=== PATIENT | male | born 1950 | race Caucasian/White ===

== ENCOUNTER 2021-05-29 00:27 | Observation (INO) | payer MEDICARE ==
[~2021-05-29] VITALS: Ht 188 cm; Wt 91.2 kg
[2021-05-29] VITALS (11 sets, daily range): BP systolic 100–136; BP diastolic 50–73
[2021-05-29 01:13] LABS: BASOPHILS # (AUTO) 0.1 X10'3 (0-0.2); BASOPHILS % (AUTO) 0.6 % (0-1); EOSINOPHILS # (AUTO) 0.3 X10'3 (0-0.9); EOSINOPHILS % (AUTO) 4.2 % (0-6); HEMATOCRIT 39.2 % (42.0-52.0); HEMOGLOBIN 13.5 g/dl (14.0-17.9); LYMPHOCYTES # (AUTO) 2.5 X10'3 (1.1-4.8); MEAN CORPUSCULAR HEMOGLOBIN 30.6 PG (27.0-31.0); MEAN CORPUSCULAR HGB CONC 34.5 g/dL (33.0-36.5); MEAN CORPUSCULAR VOLUME 88.9 FL (78-98); MEAN PLATELET VOLUME 7.4 FL (7.4-10.4); MONOCYTES # (AUTO) 0.7 X10'3 (0-0.9); MONOCYTES % (AUTO) 8.7 % (2-12); NEUTROPHILS # (AUTO) 4.3 X10'3 (1.8-7.7); NEUTROPHILS % (AUTO) 54.5 % (42-75); PLATELET COUNT 215 X10'3 (140-440); RED BLOOD COUNT 4.41 X10'6 (4.70-6.10); RED CELL DISTRIBUTION WIDTH 13.5 % (11.5-14.5); WHITE BLOOD COUNT 7.9 X10'3 (4.5-11.0)
[2021-05-29 01:26] LABS: ALANINE AMINOTRANSFERASE 33 U/L (12-78); ALBUMIN 3.6 G/DL (3.4-5.0); ALKALINE PHOSPHATASE 80 IU/L (46-116); ANION GAP 7 (8-16); ASPARTATE AMINO TRANSFERASE 21 U/L (10-37); BILIRUBIN,TOTAL 0.5 MG/DL (0.1-1.0); BLOOD UREA NITROGEN 23 MG/DL (7-18); CALCIUM 8.8 MG/DL (8.5-10.1); CHLORIDE 107 MMOL/L (99-107); CREATININE 0.82 MG/DL (0.60-1.10); GLUCOSE 97 MG/DL (70-104); POTASSIUM 3.7 MMOL/L (3.5-5.1); SODIUM 141 MMOL/L (135-145); TOTAL CARBON DIOXIDE 26.6 MMOL/L (24-32); TOTAL PROTEIN 7.1 G/DL (6.4-8.2); eGFR > 90 ML/MIN
[2021-05-29 01:34] LABS: MAGNESIUM 1.9 MG/DL (1.5-2.4)
[2021-05-29] MEDS ORDERED: FAMO-128 PO (03:59)
[2021-05-29] MEDS ORDERED: FLUT1DIS14 INH (03:59)
[2021-05-29] MEDS ORDERED: LANS15TA5 PO (03:59)
[2021-05-29] MEDS ORDERED: OMEP20CA16 PO (03:59)
[2021-05-29] MEDS ORDERED: ALLO300T8 PO (03:59)
[2021-05-29] MEDS ORDERED: FINA5TAB11 PO (03:59)
[2021-05-29] MEDS ORDERED: LEVO100T PO (03:59)
[2021-05-29] MEDS ORDERED: FLO0.4C PO (03:59)
[2021-05-29] MEDS ORDERED: aspirin 325mg tablet PO ONE (04:40)
[2021-05-29] MEDS ORDERED: ondansetron/PF 4mg/2ml inj IV PRN (05:10)
[2021-05-29] MEDS ORDERED: morphine 2 MG/ML inj. syringe IV PRN (05:10)
[2021-05-29] MEDS ORDERED: regadenoson 0.4mg/5ml syringe IV PRN (05:10)
[2021-05-29] MEDS ORDERED: HYDROcodone/acetaminophen 5mg/325mg tablet PO PRN (05:10)
[2021-05-29] MEDS ORDERED: magnesium Cl slow-release 64mg tablet PO PRN (05:10)
[2021-05-29] MEDS ORDERED: normal saline 1000ml 1,000 ML IV SCH (05:10)
[2021-05-29] MEDS ORDERED: aminophylline 250mg/10ml inj. IV PRN (05:10)
[2021-05-29] MEDS ORDERED: magnesium 2GM in 50ml NS 50 ML IV PRN (05:10)
[2021-05-29] MEDS ORDERED: metoprolol tartrate 1mg/ml inj IV PRN (05:10)
[2021-05-29] MEDS ORDERED: acetaminophen 325mg tablet PO PRN (05:10)
[2021-05-29] MEDS ORDERED: nitroGLYCERIN 0.4mg SUBLingual tab SL PRN (05:10)
[2021-05-29] MEDS ORDERED: PERFLUTREN PROTEIN-A MICROSPHR (Optison) 0.22 MG/ML 3ML VIAL IV ONE (05:10)
[2021-05-29] MEDS ORDERED: magnesium 4gm in 100ml NS 100 ML IV PRN (05:10)
[2021-05-29] MEDS ORDERED: potassium Cl 20 mEq SR tablet PO PRN ×2 (05:10)
[2021-05-29] MEDS ORDERED: potassium CL 10mEq/100ml bag 100 ML IV PRN (05:10)
[2021-05-29 08:00] LABS: POTASSIUM 3.7 MMOL/L (3.5-5.1)
[2021-05-29] MEDS: K and/or MAG REPLACEMENT MC SCH ×2 (08:00→20:00)
[2021-05-29] MEDS: enoxaparin 40mg/0.4ml syringe SUBCUT SCH (08:00)
[2021-05-29] MEDS ORDERED: LEVO150T8 PO (08:10)
[2021-05-29] MEDS: allopurinol 300 MG tablet PO SCH (08:40)
[2021-05-29] MEDS: finasteride 5mg tablet PO SCH (08:40)
[2021-05-29] MEDS: pantoprazole 40mg Tablet.DR PO SCH (08:41)
[2021-05-29] MEDS: levoTHYROXINE 75mcg tablet PO SCH (11:09)
--- NOTE | 2021-05-29 13:28 | NUR ---
Patient had 22 beats of ventricular tachycardia at 1317. Patient states he did not feel any symptoms and states he was getting up to use the bathroom at that time. Physician was paged
--- NOTE | 2021-05-29 13:28 | NUR ---
Page to Dr. Bran Message: [phone] Manjinder Jin- Had 22 beats of ventricular tachycardia at 1317. Terri [id number]
[2021-05-29] MEDS: albuterol 2.5 MG/3 ML nebule NEB SCH ×2 (14:00→20:00)
--- NOTE | 2021-05-29 15:01 | NUR ---
Page to Dr. Bran Message: [phone] Manjinder Abdi- Dr. Hernandez's office faxed his last visit in February. Terri [phone]
--- NOTE | 2021-05-29 16:22 | NUR ---
Page to Dr. Bran Message: [phone] Manjinder Abdi- Requests to talk to you. Terri [phone]
--- NOTE | 2021-05-29 18:27 | NUR ---
Problems reprioritized. Patient report given, questions answered & plan of care reviewed with Jazmin DELA CRUZ.
[2021-05-29] MEDS: budesonide 0.5mg/2ml UD nebule IH SCH (20:23)
[2021-05-29] MEDS ORDERED: tamsulosin 0.4mg capsule PO SCH (21:00)
[2021-05-30 02:00] VITALS: BP 109/60
[2021-05-30] MEDS: albuterol 2.5 MG/3 ML nebule NEB SCH ×2 (02:00→08:00)
[2021-05-30 06:00] VITALS: BP 100/48
[2021-05-30] MEDS: K and/or MAG REPLACEMENT MC SCH (08:00)
[2021-05-30] MEDS: pantoprazole 40mg Tablet.DR PO SCH (08:04)
[2021-05-30] MEDS: levoTHYROXINE 75mcg tablet PO SCH (08:04)
[2021-05-30 08:05] LABS: BASOPHILS % (AUTO) 0.5 % (0-1); EOSINOPHILS # (AUTO) 0.2 X10'3 (0-0.9); EOSINOPHILS % (AUTO) 3.6 % (0-6); HEMATOCRIT 38.3 % (42.0-52.0); HEMOGLOBIN 13.2 g/dl (14.0-17.9); LYMPHOCYTES # (AUTO) 1.8 X10'3 (1.1-4.8); LYMPHOCYTES % (AUTO) 29.4 % (21-51); MEAN CORPUSCULAR HEMOGLOBIN 30.9 PG (27.0-31.0); MEAN CORPUSCULAR HGB CONC 34.3 g/dL (33.0-36.5); MONOCYTES # (AUTO) 0.6 X10'3 (0-0.9); MONOCYTES % (AUTO) 10.4 % (2-12); NEUTROPHILS # (AUTO) 3.4 X10'3 (1.8-7.7); NEUTROPHILS % (AUTO) 56.1 % (42-75); PLATELET COUNT 199 X10'3 (140-440); RED BLOOD COUNT 4.26 X10'6 (4.70-6.10); RED CELL DISTRIBUTION WIDTH 13.8 % (11.5-14.5)
[2021-05-30] MEDS: finasteride 5mg tablet PO SCH (08:05)
[2021-05-30] MEDS: enoxaparin 40mg/0.4ml syringe SUBCUT SCH (08:05)
[2021-05-30] MEDS: allopurinol 300 MG tablet PO SCH (08:05)
[2021-05-30] MEDS: budesonide 0.5mg/2ml UD nebule IH SCH (08:07)
[2021-05-30 08:35] LABS: ANION GAP 6 (8-16); BLOOD UREA NITROGEN 16 MG/DL (7-18); BUN/CREATININE RATIO 20.8 (5.4-32.0); CALCIUM 8.6 MG/DL (8.5-10.1); CHLORIDE 107 MMOL/L (99-107); CREATININE 0.77 MG/DL (0.60-1.10); GLUCOSE 86 MG/DL (70-104); MAGNESIUM 2.1 MG/DL (1.5-2.4); PHOSPHORUS 2.8 MG/DL (2.3-4.5); SODIUM 142 MMOL/L (135-145); TOTAL CARBON DIOXIDE 28.6 MMOL/L (24-32); eGFR > 90 ML/MIN
[2021-05-30 11:00] VITALS: BP 119/66
--- NOTE | 2021-05-30 14:09 | NUR ---
Patient stable for discharge. PIV removed with catheter intact. Telemetry removed. Discharge instructions given and patient verbalized understanding. All possessions gathered and patient transferred safely to 's car.
== END 2021-05-30 14:14 | disposition home or self-care (01) ==
LOC: ER 00:28 → ED HOLD 05:11 → UNDOADMOB 05:11 → INTOOBSV 05:11 → ED HOLD 06:30 → PCU 3S 07:23
PROVIDERS: ADMIT Internal Medicine; ATTEND Family Medicine
DX: R07.89 Other chest pain (principal); Z20.822 Contact with and (suspected) exposure to COVID-19; I48.91 Unspecified atrial fibrillation; K21.9 Gastro-esophageal reflux disease without esophagitis; N40.0 Benign prostatic hyperplasia without lower urinary tract symptoms; I49.3 Ventricular premature depolarization; M10.9 Gout, unspecified; I47.2 Ventricular tachycardia; J45.909 Unspecified asthma, uncomplicated; E03.9 Hypothyroidism, unspecified; Z79.899 Other long term (current) drug therapy; Z79.82 Long term (current) use of aspirin; Z79.890 Hormone replacement therapy; Z96.651 Presence of right artificial knee joint
CPT/HCPCS: 36415; 71045; 78452; 80048; 80053; 83735; 83880; 84100; 84132; 84484; 85025; 87635; 93005; 93017; 93306; 94640; 94760; 96372; 99285; A9500; C9803; G0378; J1650

== ENCOUNTER 2022-08-01 10:01 | Emergency (ER) | payer MEDICARE ==
[~2022-08-01] VITALS: Ht 185.4 cm; Wt 85.0 kg
[~2022-08-01 10:01] MED LIST: ALLO300T8 PO; FAMO-128 PO; FINA5TAB11 PO; FLO0.4C PO; FLUT1DIS14 INH; LEVO150T8 PO; OMEP20CA16 PO
[2022-08-01 10:26] LABS: BASOPHILS # (AUTO) 0.1 X10'3 (0-0.2); BASOPHILS % (AUTO) 0.9 % (0-1); EOSINOPHILS # (AUTO) 0.2 X10'3 (0-0.9); EOSINOPHILS % (AUTO) 3.3 % (0-6); HEMATOCRIT 40.2 % (42.0-52.0); HEMOGLOBIN 13.8 g/dl (14.0-17.9); LYMPHOCYTES # (AUTO) 1.3 X10'3 (1.1-4.8); LYMPHOCYTES % (AUTO) 23.8 % (21-51); MEAN CORPUSCULAR HEMOGLOBIN 31.7 PG (27.0-31.0); MEAN CORPUSCULAR HGB CONC 34.4 g/dL (33.0-36.5); MEAN CORPUSCULAR VOLUME 92.1 FL (78-98); MEAN PLATELET VOLUME 7.6 FL (7.4-10.4); MONOCYTES # (AUTO) 0.4 X10'3 (0-0.9); MONOCYTES % (AUTO) 8.1 % (2-12); NEUTROPHILS # (AUTO) 3.5 X10'3 (1.8-7.7); NEUTROPHILS % (AUTO) 63.9 % (42-75); PLATELET COUNT 205 X10'3 (140-440); RED BLOOD COUNT 4.36 X10'6 (4.70-6.10); RED CELL DISTRIBUTION WIDTH 14.2 % (11.5-14.5); WHITE BLOOD COUNT 5.5 X10'3 (4.5-11.0)
--- NOTE | 2022-08-01 10:50 | NUR ---
AT BEDSIDE - PT RESTING COMFORTABLY - NO NEEDS AT THIS TIME - CALL LIGHT IN REACH
[2022-08-01 10:52] LABS: ALANINE AMINOTRANSFERASE 29 U/L (12-78); ALBUMIN 3.6 G/DL (3.4-5.0); ALBUMIN/GLOBULIN RATIO 1.1 (1.1-1.5); ALKALINE PHOSPHATASE 68 IU/L (46-116); ANION GAP 6 (8-16); ASPARTATE AMINO TRANSFERASE 24 U/L (10-37); BILIRUBIN,TOTAL 0.8 MG/DL (0.1-1.0); BLOOD UREA NITROGEN 15 MG/DL (7-18); BUN/CREATININE RATIO 15.5 (10.0-20.0); CALCIUM 9.1 MG/DL (8.5-10.1); CHLORIDE 104 MMOL/L (99-107); CREATININE 0.97 MG/DL (0.60-1.10); GLUCOSE 107 MG/DL (70-104); MAGNESIUM 2.3 MG/DL (1.5-2.4); SODIUM 139 MMOL/L (135-145); TOTAL CARBON DIOXIDE 29.1 MMOL/L (24-32); TOTAL PROTEIN 6.9 G/DL (6.4-8.2); eGFR 76 ML/MIN
[2022-08-01] MEDS ORDERED: normal saline 1000ml 1,000 ML IV ONE (12:00)
[2022-08-01 12:08] VITALS: BP 123/76
[2022-08-01 12:19] LABS: CLARITY,URINE CLEAR (Clear); COLOR,URINE YELLOW (Yellow); GLUCOSE, URINE NEGATIVE (Neg); KETONES,URINE NEGATIVE (Neg); LEUKOCYTE ESTERASE ,URINE NEGATIVE (Neg); NITRITES, URINE NEGATIVE (Neg); OCCULT BLOOD,URINE NEGATIVE (Neg); PROTEIN,URINE NEGATIVE (Neg); UROBILINOGEN,URINE 0.2 E.U/dL (0.2-1.0)
[2022-08-01 12:22] LABS: UA COLLECTION TYPE VOIDED
== END 2022-08-01 13:42 | disposition home or self-care (01) ==
LOC: ER 10:02
DX: R00.2 Palpitations (principal); R94.6 Abnormal results of thyroid function studies; R07.89 Other chest pain; R11.0 Nausea; J45.909 Unspecified asthma, uncomplicated; E03.9 Hypothyroidism, unspecified; M19.90 Unspecified osteoarthritis, unspecified site; Z88.0 Allergy status to penicillin; Z88.6 Allergy status to analgesic agent
CPT/HCPCS: 36415; 71045; 80053; 81003; 83735; 83880; 84439; 84443; 84484; 85025; 93005; 96360; 99285; J7030

== ENCOUNTER 2023-10-30 13:46 | Emergency (ER) | payer MEDICARE ==
[~2023-10-30] VITALS: Ht 185.4 cm; Wt 88.0 kg
[2023-10-30 14:37] LABS: BASOPHILS # (AUTO) 0.1 X10'3 (0-0.2); EOSINOPHILS # (AUTO) 0.3 X10'3 (0-0.9); EOSINOPHILS % (AUTO) 4.7 % (0-6); HEMATOCRIT 39.7 % (42.0-52.0); HEMOGLOBIN 13.3 g/dl (14.0-17.9); LYMPHOCYTES # (AUTO) 1.8 X10'3 (1.1-4.8); LYMPHOCYTES % (AUTO) 29.7 % (21-51); MEAN CORPUSCULAR HEMOGLOBIN 30.9 PG (27.0-31.0); MEAN CORPUSCULAR HGB CONC 33.4 g/dL (33.0-36.5); MEAN CORPUSCULAR VOLUME 92.6 FL (78-98); MEAN PLATELET VOLUME 7.2 FL (7.4-10.4); MONOCYTES # (AUTO) 0.6 X10'3 (0-0.9); MONOCYTES % (AUTO) 9.6 % (2-12); NEUTROPHILS # (AUTO) 3.4 X10'3 (1.8-7.7); PLATELET COUNT 211 X10'3 (140-440); RED BLOOD COUNT 4.29 X10'6 (4.70-6.10); WHITE BLOOD COUNT 6.2 X10'3 (4.5-11.0)
[2023-10-30 14:59] VITALS: TEMP 98
[2023-10-30 15:02] LABS: ALBUMIN 3.4 G/DL (3.4-5.0); ANION GAP 3 (8-16); BLOOD UREA NITROGEN 22 MG/DL (7-18); BUN/CREATININE RATIO 22.2 (10.0-20.0); CALCIUM 8.7 MG/DL (8.5-10.1); CHLORIDE 106 MMOL/L (99-107); CREATININE 0.99 MG/DL (0.60-1.10); GLUCOSE 112 MG/DL (70-104); POTASSIUM 4.2 MMOL/L (3.5-5.1); PRO BRAIN NATRIURETIC PEPTIDE 146 PG/ML (0-125); SODIUM 139 MMOL/L (135-145); TOTAL CARBON DIOXIDE 29.7 MMOL/L (24-32); eCRCL 74 ML/MIN; eGFR 74 ML/MIN
[2023-10-30 15:59] VITALS: BP 123/69; PULSE 54; RESP 16; O2SAT 99
== END 2023-10-30 16:02 | disposition home or self-care (01) ==
LOC: ER 13:46
DX: S00.12XA Contusion of left eyelid and periocular area, initial encounter (principal); R42 Dizziness and giddiness; I48.91 Unspecified atrial fibrillation; J45.909 Unspecified asthma, uncomplicated; E03.9 Hypothyroidism, unspecified; M19.90 Unspecified osteoarthritis, unspecified site; Z88.0 Allergy status to penicillin; Z88.6 Allergy status to analgesic agent; Z79.899 Other long term (current) drug therapy; Z79.2 Long term (current) use of antibiotics; X58.XXXA Exposure to other specified factors, initial encounter; Y93.89 Activity, other specified; Y92.89 Other specified places as the place of occurrence of the external cause; Y99.8 Other external cause status
CPT/HCPCS: 36415; 80048; 83880; 84484; 85025; 93005; 99284

== ENCOUNTER 2024-08-30 20:36 | Emergency (ER) | payer MEDICARE ==
[~2024-08-30] VITALS: Ht 185.4 cm; Wt 65.0 kg
[2024-08-30 20:38] VITALS: BP 126/69; PULSE 72; RESP 16; TEMP 98.6; O2SAT 97
--- NOTE | 2024-08-30 21:01 | Physician Documentation ---
History of Present Illness ~ Chief Complaint: Laceration Stated Complaint: L ARM LAC Time Seen by MD: 21:01 Primary Medical Doctor: MD Nain and MD Mary HPI This 74-year-old male with a unknown tetanus status presents to the emergency department reporting that he was doing some painting today when he scraped his left lateral arm on some wood, sustaining a laceration that is approximately 3 cm. He denies any other concerns, and reports that he is otherwise feeling well and at his baseline. Tetanus Within 5 Years: Yes Medication Reconciliation Allergies: Coded Allergies: Penicillins (Verified Allergy, Intermediate, HIVES, 08/30/24) aspirin (Verified Allergy, Intermediate, HIVES, 08/30/24) Scheduled Allopurinol (Allopurinol), 1 TAB PO DAILY, (Reported) Famotidine (Pepcid), 1 TAB PO Q12H, (Reported) Finasteride (Finasteride), 1 TAB PO DAILY, (Reported) Fluticasone/Salmeterol (Advair 100-50 Diskus), 1 PUFFS INH DAILY, (Reported) Levothyroxine Sodium (Levothyroxine Sodium), 1 TAB PO DAILY, (Reported) Omeprazole (Omeprazole), 1 CAP PO DAILY, (Reported) Tamsulosin Hcl (Flomax), 0.4 MG PO HS, (Reported) Past Medical History Past Medical History: Atrial Fibrillation, Asthma, BPH, Hypothyroidism, Arthritis Past Surgical History: other Other Past Surgical History: Cardiac ablation Drug Use: none Lives with: Spouse Lives In: Home Occupation: retired Review of Systems ROS As stated above in the HPI, otherwise all systems are reviewed and negative. Physical Exam Vital Signs: Temperature: 98.6, Source: Oral, Heart Rate: 72, Respiratory Rate: 16, BP: 126/69, Pulse Oximetry: 97, Weight: 65.050 Oxygen Flow Rate: 0 Physical Exam General: Alert, no apparent distress. HEENT: PERRL, EOMI, no injection, moist mucous membranes. Neck: Full range of motion. Respiratory: Lungs clear, no respiratory distress. Chest: No accessory muscle use. Cardiovascular: Regular rate and rhythm, no murmurs. Gastrointestinal: Soft, nontender, nondistended. Bowels sounds present. Extremities: Normal range of motion, no deformity. Neurologic: Oriented x4. Psychiatric: Normal mood and affect. Skin: Normal color, warm and dry. No edema, no ecchymosis. 3 cm left lateral forearm laceration. Procedures Procedure Note 3 cm lateral left forearm laceration closed with 4.0 prolene x 4 sutures. This was accomplished after anesthetizing the skin with a total of 2 ml of 1% lidocaine with epi to good effect. The wound was then copiously flushed by the tech and no foreign body was identified. Patient tolerated well. Progress Results/Orders Results/Orders Orders - PATY NOEL NP Dressing Orders (08/30/24 21:02) Laceration/I&D Tray Set Up (08/30/24 21:02) Wound Care Orders (08/30/24 21:02) Completed Orders - PATY NOEL NP Tetanus/Pertuss/Diph Acell/Pf (Boostrix (08/30/24 21:05) Lidocaine 1% W/Epi 1:100,000 (Xylocaine (08/30/24 21:05) Medications Received in ER Medications (Trade) Dose Ordered Sig/Fawad Route PRN Reason Start Time Stop Time Status Last Admin Dose Admin (Boostrix vaccine syringe) 0.5 ml ONCE ONCE IMVAC 08/30/24 21:05 08/30/24 21:06 DC 08/30/24 21:23 0.5 ML Vital Signs 08/30/24 20:38 Temp 98.6 Pulse 72 Resp 16 B/P (MAP) 126/69 Pulse Ox 97 O2 Flow Rate 0 Medical Decision Making Differential Dx:Considerations: Include: Abrasion, Avulsion, Contusion, Laceration, Fracture, Hematoma, Neurovascular injury, Retained foreign body Additional Comments No foreign body. No injury to ligaments or other underlying structures. Simple laceration repaired with four sutures with good closure. Departure Time of Disposition: 21:26 Disposition: 01 HOME / SELF CARE / HOMELESS Impression: Primary Impression: Laceration Condition: Stable Discharge Instructions: Laceration Care, Adult, [id number] Additional Instructions: Your tetanus was updated today. Please see your primary care for suture removal in one week. Return here if unable to get into primary care for suture removal, you develop signs of infection such as spreading redness and increasing pain, or there are any other concerns that you are worsening. Referrals: NO PRIMARY CARE PROVIDER (PCP) Education Educated: Patient Educated regarding: diagnosis, treatment, prognosis, need for follow up Signature Scribe Signature: no scribe Attestation: The note accurately reflects work and decisions made by me.Paty Valiente NP 08/30/24 21:26 PATY NOEL NP Aug 30, 2024 21:01
[2024-08-30] MEDS: LIDOcaine 1% W/epiNEPHrine 1:100,000 20ml vial IJ ONE (21:21)
[2024-08-30] MEDS: TETanus/Pertussis (Acell)/Diphther VAC/PF (Tdap-Adult) 0.5ml syringe IMVAC ONE (21:23)
== END 2024-08-30 22:10 | disposition home or self-care (01) ==
LOC: ER 20:36
DX: S51.812A Laceration without foreign body of left forearm, initial encounter (principal); E03.9 Hypothyroidism, unspecified; I48.91 Unspecified atrial fibrillation; J45.909 Unspecified asthma, uncomplicated; M19.90 Unspecified osteoarthritis, unspecified site; Z88.0 Allergy status to penicillin; Z88.6 Allergy status to analgesic agent; X58.XXXA Exposure to other specified factors, initial encounter; Y93.89 Activity, other specified; Y92.89 Other specified places as the place of occurrence of the external cause; Y99.8 Other external cause status
CPT/HCPCS: 12002; 90715; 99283; A6258; A6402; A6449; G0008; J7030; Z7610; 90471